=== PATIENT | male | born 1990 | race Two or more races ===

== ENCOUNTER 2016-07-27 18:45 | Emergency (ER) | payer OTHER ==
[2016-07-27 19:58] LABS: CALCIUM SERUM 9.2 mg/dL (8.4-10.2); CREATININE SERUM 0.9 mg/dL (0.6-1.4); GLOM FILT RATE Estimated 118.3 mL/min (>60); POTASSIUM 3.8 mmol/L (3.5-5.1)
== END 2016-07-27 20:44 | disposition home or self-care (01) ==
LOC: CED 18:45 → CFTX 18:45
PROVIDERS: Nurse Practitioner Family
DX: S39.012A Strain of muscle, fascia and tendon of lower back, initial encounter (principal); F17.210 Nicotine dependence, cigarettes, uncomplicated; X58.XXXA Exposure to other specified factors, initial encounter
CPT/HCPCS: 36415; 80048; 99283